=== PATIENT | female | born 1980 | race Caucasian/White ===

== ENCOUNTER → 2025-07-17 09:04 | Outpatient (CLI) | payer OTHER, SELFPAY ==
[2025-07-17 09:54] LABS: Hematocrit 32.6 % (36-46); Hemoglobin 9.7 g/dL (12.0-16.0); Lymphocytes Absolute Auto 1200 /uL (1100-4500); Mean Corpuscular HGB Conc 29.9 % (30-36); Mean Corpuscular Hemoglobin 20.8 PG (26-34); Mean Corpuscular Volume 69.7 fL (80-100); Platelet Count 638 X10^3/uL (150-400)
[2025-07-17 10:09] LABS: Add Manual Diff / Slide Review SLIDE REVIEW
[2025-07-17 10:11] LABS: HEMOLYSIS < 15 (0-50); Iron 35 ug/dL (37-170)
[2025-07-17 10:22] LABS: Percent Iron Saturation 8 % (15-50); Total Iron Binding Capacity 422 ug/dL (265-497); Transferrin 337 mg/dL (206-381)
[2025-07-17 10:24] LABS: Microcytosis 2+
[2025-07-17 10:48] LABS: Ferritin 8 ng/mL (6-137)
[2025-07-17 11:19] LABS: Folate 6.5 ng/mL (2.76-20.0); Vitamin B12 407 pg/mL (239-931)
== END ==
PROVIDERS: PCP Physician Assistant; Referring Provider Physician Assistant; Visit Provider Physician Assistant
DX: D50.8 Other iron deficiency anemias (principal); Z98.84 Bariatric surgery status
CPT/HCPCS: 36415; 82607; 82728; 82746; 83540; 83550; 85025

== ENCOUNTER 2025-09-20 12:58 | Day surgery (SDC) | payer OTHER, SELFPAY ==
[2025-09-09 12:32] VITALS: BMI 34.0
--- NOTE | 2025-09-20 | PATH_ITS ---
[facility] Accession Number: [id number] No. of containers..01 Tissue . 01 Material submitted: . duodenum - JEJUNUM-DUODENUM . 01 Diagnosis: JEJUNUM/DUODENUM, BIOPSY: Small bowel mucosa with no diagnostic abnormality. Negative for active inflammation, features of sprue, dysplasia, or malignancy. MRV 09/27/2025 1447 Local . 01 Electronically signed: . Gilberto Munoz MD, PhD, Pathologist NPI- [id number] . 01 Gross description: . Received in formalin with two identifiers and jejunum duodenal biopsy are five zavala soft tissue fragments, 0.1-0.2 cm in greatest dimension, submitted entirely in A1. ([id number]) /MRV 09/22/2025 1247 Local . 01 Pathologist provided ICD-10: D64.9 . 01 CPT . 795557 Specimen Comment: A courtesy copy of this report has been sent to [phone] Performed at: [address] [facility] [address], [place], [place] [id number] MD Maykel Schroeder MD Phone: [phone]
[2025-09-20 13:45] VITALS: BP 118/86; PULSE 61; RESP 16; TEMP 36.2; O2SAT 95
[2025-09-20] MEDS: LACTATED RINGERS 1,000 ML 42 ML IV (13:57)
--- NOTE | 2025-09-20 14:09 | PM.HP.IH.1 ---
History of Present Illness History of Present Illness Date Patient Seen: 09/20/25 Chief complaint: SDC Narrative: Anemia of unclear origin anemia of unclear origin [facility] Medical History (Updated 09/09/25 @ 12:56 by Ciera Rock, RN) Essential hypertension Anxiety Extrinsic asthma Hypothyroidism (acquired) PCOS (polycystic ovarian syndrome) Hypothyroid HLD (hyperlipidemia) JAMIE (iron deficiency anemia) Surgical History (Updated 09/09/25 @ 12:19 by Ciera Rock RN) History of [place]-en-Y gastric bypass (2017) Social History Smoking Status: Former smoker Meds Home Medications and Allergies Home Medications ?Medication ?Instructions ?Recorded ?Confirmed ?Type amlodipine 5 mg tablet 5 mg PO DAILY 08/12/25 08/12/25 History bupropion HCl 150 mg tablet,12 hr 150 mg PO BID 08/12/25 08/12/25 History sustained-release epinephrine 0.3 mg/0.3 mL ml IM 08/12/25 08/12/25 History injection, auto-injector escitalopram oxalate 10 mg tablet 10 mg PO DAILY 08/12/25 08/12/25 History ferrous sulfate 325 mg (65 mg 325 mg PO 3XD 08/12/25 08/12/25 History iron) tablet (FeroSul) levothyroxine 137 mcg tablet 137 mcg PO DAILY 08/12/25 08/12/25 History methylphenidate HCl 36 mg 36 mg PO QAM 08/12/25 08/12/25 History tablet,extended release 24 hr tirzepatide 5 mg/0.5 mL 5 mg SUBCUT QWEEK 08/12/25 08/12/25 History subcutaneous pen injector Allergies Allergy/AdvReac Type Severity Reaction Status Date / Time NSAIDS (Non-Steroidal AdvReac Severe Gastrointestinal Verified 08/12/25 10:29 Anti-Inflamma Upset Exam Vital Signs (past 8 hours): - 09/20/25 13:45 Temperature 97.2 F L Pulse Rate 61 Respiratory Rate 16 Blood Pressure 118/86 Pulse Oximetry 95 Oxygen Delivery Method Room Air Oxygen Delivery Method Room Air Narrative Exam Narrative: Oropharynx free of lesions Chest clear to auscultation percussion Cardiac exam reveals no S3 or murmur Assessment & Plan Assessment & Plan narrative: Unclear origin of anemia. Rule out peptic disease rule out celiac need for EGD and colonoscopy. Risks benefits and alternatives have been explained as she was seen in the office Time-Based Coding :: [TOTAL MINUTES] spent with patient and on the chart (including review of chart, obtaining history, exam, reviewing outside data, placing orders, documenting exam and treatment plan, and counseling patient) on [DATE]. [employer] Attendant Document charge(s): No
--- NOTE | 2025-09-20 14:11 | PM.OP.EC ---
Operative Date/Time/Diagnoses Date of procedure: 09/20/25 Time of procedure: 14:53 Pre-op diagnosis: Anemia Post-op diagnosis: same Procedure & Clinicians Study performed: EGD and colonoscopy Same procedure(s) as scheduled: Yes Indications: Anemia of unclear etiology Surgeon: Manuel Banuelos Anesthesia Type: MAC +/- Procedure Notes Procedure in detail: After informed consent was obtained the patient was placed in left lateral decubitus position. The video upper scope was placed into the oropharynx and with the patient's help swallowed into the esophagus. The esophagus stomach and duodenal were carefully examined. On withdrawal, retroflexed view the GE junction was performed. The scope was removed. The patient tolerated the procedure well. The patient was then turned and the colonoscope substituted. This was passed into the rectum slowly advanced cecum. Preparation was good. On slow withdrawal mucosa was carefully examined. The scope was. The patient tolerated the procedure well. Blood loss none Complications none Sedation mac Findings EGD 1. Normal esophagus 2. For cm gastric pouch without evidence of inflammation or ulceration 3. Past jejunum from 40-95 cm/the extent of the scope. No abnormalities seen. Biopsies taken both distally and proximally Colonoscopy 1. Normal colonoscopy to cecum Will be in touch regarding biopsies but I suspect will be negative. CBC should be followed. Estimated Blood Loss: 0 Complications: none
[2025-09-20 14:57] VITALS: BP 113/73; PULSE 55; RESP 16; TEMP 36.2; O2SAT 97
[2025-09-20 15:02] VITALS: BP 105/70; PULSE 52; RESP 16; TEMP 36.2; O2SAT 97
[2025-09-20 15:07] VITALS: BP 126/81; PULSE 73; RESP 16; TEMP 36.2; O2SAT 96
[2025-09-20 15:12] VITALS: BP 112/80; PULSE 58; RESP 20; TEMP 36.2; O2SAT 98
== END 2025-09-20 15:21 | disposition home or self-care (01) ==
PROVIDERS: PCP Physician Assistant; Referring Provider Internal Medicine Gastroenterology; Visit Provider Internal Medicine Gastroenterology
PROC: 0DJ08ZZ Inspection of Upper Intestinal Tract, Via Natural or Artificial Opening Endoscopic (ICD-10-PCS; CPT 43239; principal; 2025-09-20 14:00)
PROC: 0DJD8ZZ Inspection of Lower Intestinal Tract, Via Natural or Artificial Opening Endoscopic (ICD-10-PCS; CPT 45378; 2025-09-20 14:00)
DX: D64.9 Anemia, unspecified (principal); Z98.84 Bariatric surgery status; Z87.891 Personal history of nicotine dependence
CPT/HCPCS: 43239; 45378; J2704; J7120